=== PATIENT | female | born 1960 | race Caucasian/White ===

== ENCOUNTER 2022-10-18 09:26 | Emergency (ER) | payer OTHER ==
[~2022-10-18] VITALS: Ht 152.4 cm; Wt 68.0 kg
[2022-10-18 09:26] VITALS: BP_SYST 138
--- NOTE | 2022-10-18 09:30 | NUR ---
BROUGHT BACK TO BED #6 AND TRIAGED. REPORT GIVEN TO PAULA
--- NOTE | 2022-10-18 09:35 | NUR ---
PT BIB SON AWAKE AND ALERT AOX4, NO SOB. PT C/O CLEEDING AND PAIN TO LOWER LIPS. PT HAD A MECHANICAL FALL AT HOME TRIPPING OVER STEPS AT HOME. PT STATES PAIN /. PT DENIES PAIN TO HEAD AND OTHER AREA ON BODY.
--- NOTE | 2022-10-18 09:37 | NUR ---
MD DR GRANADOS AT BEDSIDE
--- NOTE | 2022-10-18 09:55 | NUR ---
DR GRANADOS AT BEDSIDE PLACING SUTURES.
[2022-10-18] MEDS ORDERED: LIDOCAINE/EPI 1% 1:100000 20 ML VIAL INJ ONE (10:00)
[2022-10-18] MEDS ORDERED: DIPHTH,PERTUSS(ACELL),TET VAC 0.5 ML VIAL (Tdap) I.M. ONE (10:00)
[2022-10-18] MEDS ORDERED: PENI250T2 PO (10:14)
--- NOTE | 2022-10-18 10:40 | NUR ---
Patient given written and verbal discharge instructions and verbalizes understanding. ER MD DR GRANADOS discussed with patient the results and treatment provided. Patient in stable condition. ID arm band removed. Rx of PENICILLIN given. Patient educated on pain management and to follow up with PMD. Pain Scale . Opportunity for questions provided and answered. Medication side effect fact sheet provided.
[2022-10-18 10:59] VITALS: BP_SYST 135
== END 2022-10-18 10:40 | disposition home or self-care (01) ==
LOC: SED 09:26
DX: S01.511A Laceration without foreign body of lip, initial encounter (principal); Z79.899 Other long term (current) drug therapy; W22.8XXA Striking against or struck by other objects, initial encounter; Y93.89 Activity, other specified; Y92.89 Other specified places as the place of occurrence of the external cause; Y99.8 Other external cause status
CPT/HCPCS: 99283